=== PATIENT | male | born 1975 | race Caucasian/White ===

== ENCOUNTER 2017-04-23 15:07 | Emergency (ER) | payer OTHER, MEDICAID ==
[2017-04-23 15:15] VITALS: TEMP 98.4
[2017-04-23] MEDS ORDERED: NS 1,000 ML IV ONE ×2 (15:29)
[2017-04-23 15:36] LABS: % IMMATURE GRANULYOCYTES 0.3 % (0.0-1.1); ABSOLUTE IMMATURE GRANULOCYTES 0.04 10^3/uL (0.00-0.10); ADD DIFF? NO; ADD MORPH? NO; ADD SCAN? NO; ATYPICAL LYMPHOCYTE FLAG 10 (0-99); FRAGMENT RBC FLAG 0 (0-99); HEMATOCRIT 46.3 % (40.0-51.0); HEMOGLOBIN 16.5 g/dL (13.7-17.5); LEFT SHIFT FLG 0 (0-99); LIPEMIA HEMOLYSIS FLAG 90 (0-99); MEAN CELL HEMOGLOBIN CONCENTR. 35.6 g/dL (32.4-36.7); MEAN PLATELET VOLUME 9.9 fL (8.7-11.7); PLATELET CLUMPS FLAG 0 (0-99); PLATELET COUNT 280 10^3/uL (150-400); RED BLOOD CELL COUNT 5.32 10^6/uL (4.40-6.38); RED CELL DISTRIBUTION WIDTH 12.1 % (11.5-15.2)
[2017-04-23 15:42] LABS: ANION GAP 17 mEq/L (8-16); CALCIUM 9.7 mg/dL (8.5-10.4); CARBON DIOXIDE 19 mEq/l (22-31); CHLORIDE 107 mEq/L (97-110); CREATININE 0.9 mg/dL (0.7-1.3); GLOMERULAR FILTRATION RATE > 60; GLUCOSE 93 mg/dL (70-100); POTASSIUM 4.4 mEq/L (3.5-5.2); SODIUM 143 mEq/L (134-144)
--- NOTE | 2017-04-23 15:45 | EDPHY ---
H & P Stated Complaint: Blood in Stool, "Passed Out" Time Seen by Provider: 04/23/17 15:14 HPI/ROS: CHIEF COMPLAINT: Syncope, diarrhea HISTORY OF PRESENT ILLNESS: The patient presents to the emergency department after a syncopal episode last night. He is currently incarcerated at the skilled nursing. The patient reportedly struck his head but did not lose consciousness. He has had 2 days of profuse green watery diarrhea. The patient denies recent travel outside [place]. He denies recent antibiotic use. The patient's stool was reportedly heme-positive. The patient denies any chest pain or shortness of breath. He has remote history of concussion and cervical spine fracture. He denies acute neck pain. The patient denies any significant cardiac history. He takes no regular medications. The patient continues to have ongoing diarrhea today. REVIEW OF SYSTEMS: A comprehensive 10 point review of systems is otherwise negative aside from elements mentioned in the history of present illness. Source: Patient Exam Limitations: No limitations - Personal History Current Tetanus Diphtheria and Acellular Pertussis (TDAP): Yes - Medical/Surgical History Hx Asthma: No Hx Chronic Respiratory Disease: No Hx Diabetes: No Hx Cardiac Disease: No Hx Renal Disease: No Hx Cirrhosis: No Hx Alcoholism: No Hx HIV/AIDS: No Hx Splenectomy or Spleen Trauma: No Other PMH: Orthopedic Sgys, GERD, Enlarged Heart, Meth Use - Social History Smoking Status: Former smoker - Physical Exam Exam: General Appearance: Alert, no distress Eyes: Pupils equal and round no pallor or injection ENT, Mouth: Mucous membranes moist Respiratory: There are no retractions, lungs are clear to auscultation Cardiovascular: Regular rate and rhythm Gastrointestinal: Abdomen is soft and nontender, no masses, bowel sounds normal Neurological: A&O, normal motor function, normal sensory exam, normal cranial nerves Skin: Warm and dry, no rashes Musculoskeletal: Neck is supple nontender Extremities: symmetrical, full range of motion Constitutional: Initial Vital Signs Temperature (C) 36.9 C 04/23/17 15:12 Heart Rate 94 04/23/17 15:12 Respiratory Rate 16 04/23/17 15:12 Blood Pressure 146/101 H 04/23/17 15:12 O2 Sat (%) 94 04/23/17 15:12 O2 Delivery Mode Room Air Allergies/Adverse Reactions: No Known Allergies Allergy (Unverified 04/23/17 15:14) Home Medications: Medication Instructions Recorded NK [No Known Home Meds] 04/23/17 Medical Decision Making - Diagnostics EKG Interpretation: EKG: Complete interpretation has been separately recorded in the [employer] archive. Summary impression: Sinus rhythm, rate 88 ED Course/Re-evaluation: Patient had an IV established. The patient received 2 L of normal saline. The patient's laboratory studies are within normal limits. Specifically the patient has no evidence of critical anemia. He presents to the ED with green watery diarrhea. I see no indication to starting antibiotics. The patient will be advised to return to the emergency department for more significant GI bleeding, recurrent syncope other concerns. His EKG demonstrates no evidence of an arrhythmia. In terms of the patient's fall, there is no evidence of significant closed head injury or cervical spine injury clinically. Differential Diagnosis: Differential diagnosis considered includes critical anemia, arrhythmia, dehydration, vasovagal episode, metabolic abnormality - Data Points Laboratory Results: Laboratory Results 04/23/17 15:25 04/23/17 15:25 04/23/17 04/23/17 15:25 15:25 WBC 12.05 10^3/uL H 10^3/uL (3.80-9.50) RBC 5.32 10^6/uL 10^6/uL (4.40-6.38) Hgb 16.5 g/dL g/dL (13.7-17.5) Hct 46.3 % % (40.0-51.0) MCV 87.0 fL fL (81.5-99.8) MCH 31.0 pg pg (27.9-34.1) MCHC 35.6 g/dL g/dL (32.4-36.7) RDW 12.1 % % (11.5-15.2) Plt Count 280 10^3/uL 10^3/uL (150-400) MPV 9.9 fL fL (8.7-11.7) Neut % (Auto) 61.5 % % (39.3-74.2) Lymph % (Auto) 28.6 % % (15.0-45.0) [place] % (Auto) 7.9 % % (4.5-13.0) Eos % (Auto) 1.4 % % (0.6-7.6) Baso % (Auto) 0.3 % % (0.3-1.7) Nucleat RBC Rel Count 0.0 % % (0.0-0.2) Absolute Neuts (auto) 7.40 10^3/uL H 10^3/uL (1.70-6.50) Absolute Lymphs (auto) 3.45 10^3/uL H 10^3/uL (1.00-3.00) Absolute Monos (auto) 0.95 10^3/uL H 10^3/uL (0.30-0.80) Absolute Eos (auto) 0.17 10^3/uL 10^3/uL (0.03-0.40) Absolute Basos (auto) 0.04 10^3/uL 10^3/uL (0.02-0.10) Absolute Nucleated RBC 0.00 10^3/uL 10^3/uL (0-0.01) Immature Gran % 0.3 % % (0.0-1.1) Immature Gran # 0.04 10^3/uL 10^3/uL (0.00-0.10) Sodium 143 mEq/L mEq/L (134-144) Potassium 4.4 mEq/L mEq/L (3.5-5.2) Chloride 107 mEq/L mEq/L (97-110) Carbon Dioxide 19 mEq/l L mEq/l (22-31) Anion Gap 17 mEq/L H mEq/L (8-16) BUN 15 mg/dL mg/dL (7-23) Creatinine 0.9 mg/dL mg/dL (0.7-1.3) Estimated GFR > 60 Glucose 93 mg/dL mg/dL (70-100) Calcium 9.7 mg/dL mg/dL (8.5-10.4) Medications Given: Discontinued Medications Sodium Chloride (Ns) 1,000 mls @ 0 mls/hr IV EDNOW ONE; Wide Open PRN Reason: Protocol Stop: 04/23/17 15:30 Last Admin: 04/23/17 15:50 Dose: Not Given Sodium Chloride (Ns) 1,000 mls @ 0 mls/hr IV EDNOW ONE; Wide Open PRN Reason: Protocol Stop: 04/23/17 15:30 Last Admin: 04/23/17 15:51 Dose: 1,000 mls Departure - Departure Disposition: Home, Routine, Self-Care Clinical Impression: Syncope, Diarrhea Condition: Good Instructions: Acute Diarrhea (ED) Additional Instructions: 1. Imodium as needed for diarrhea. 2. Return to the ED for severe abdominal pain, fever, grossly bloody stool or other concerns. 3. Please follow up with your primary care provider as scheduled.
--- NOTE | 2017-04-23 15:48 | CPEKG ---
Heart Rate: 88 RR Interval: 682 P-R Interval: 160 QRSD Interval: 112 QT Interval: 388 QTC Interval: 470 P [place]: 36 QRS [place]: -34 T Wave [place]: 31 EKG Severity - ABNORMAL ECG - EKG Impression: SINUS RHYTHM Electronically Signed By: Selvin Asif 23-Apr-2017 15:52:40
[2017-04-23 16:40] VITALS: BP 141/99; PULSE 74; RESP 18; O2SAT 97
== END 2017-04-23 16:40 | disposition home or self-care (01) ==
LOC: EEVIPCON 15:07
DX: R55 Syncope and collapse (principal); R19.7 Diarrhea, unspecified; E86.9 Volume depletion, unspecified; Z87.891 Personal history of nicotine dependence

== ENCOUNTER 2018-02-09 12:36 | Emergency (ER) | payer MEDICAID, OTHER ==
--- NOTE | 2018-02-09 12:51 | CPEKG ---
Heart Rate: 76 RR Interval: 789 P-R Interval: 164 QRSD Interval: 112 QT Interval: 416 QTC Interval: 468 P [place]: 23 QRS [place]: -43 T Wave [place]: 13 EKG Severity - ABNORMAL ECG - EKG Impression: SINUS RHYTHM EKG Impression: NONSPECIFIC IVCD WITH LAD Electronically Signed By: Herbert Saravia 09-Feb-2018 15:05:34
[2018-02-09 13:15] LABS: PLATELET COUNT 243 10^3/uL (150-400)
--- NOTE | 2018-02-09 13:44 | EDPHY ---
H & P Stated Complaint: syncopal event in court/hadn't eaten Time Seen by Provider: 02/09/18 12:57 HPI/ROS: CHIEF COMPLAINT: Syncope HISTORY OF PRESENT ILLNESS: 43-year-old male presents after a syncopal episode. He was standing in court this morning, began to feel dizzy and clammy and then had a witnessed syncopal episode. He was helped to a chair by a mounted police officer. He currently feels back to normal. He did not eat breakfast this morning. He has not been ill and no recent injury. 1 prior syncopal episode a few years ago. REVIEW OF SYSTEMS: complete 10 point ROS negative except at noted in the HPI - Personal History Current Tetanus/Diphtheria Vaccine: Unsure - Medical/Surgical History Hx Asthma: No Hx Chronic Respiratory Disease: No Hx Diabetes: No Hx Cardiac Disease: No Hx Renal Disease: No Hx Cirrhosis: No Hx Alcoholism: No Hx HIV/AIDS: No Hx Splenectomy or Spleen Trauma: No Other PMH: Orthopedic Sgys, GERD, Meth Use - Social History Smoking Status: Former smoker - Physical Exam Exam: General Appearance: Alert, pleasant, cooperative Eyes: Pupils equal and round, no conjunctival pallor ENT, Mouth: Mucous membranes moist Neck: Normal inspection Respiratory: Lungs are clear to auscultation Cardiovascular: Regular rate and rhythm, no murmur Gastrointestinal: Abdomen is soft and nontender Neurological: Alert, oriented x3, cranial nerves II through XII intact, motor 5 /5, sensory intact to light touch Skin: Warm and dry Extremities: Normal inspection Psychiatric: Mood and affect normal Constitutional: Initial Vital Signs Temperature (C) 36.3 C 02/09/18 12:41 Heart Rate 70 02/09/18 12:41 Respiratory Rate 16 02/09/18 12:41 Blood Pressure 124/80 H 02/09/18 12:41 O2 Sat (%) 93 02/09/18 12:41 O2 Delivery Mode Room Air Allergies/Adverse Reactions: No Known Allergies Allergy (Verified 02/09/18 12:41) Home Medications: Medication Instructions Recorded [facility] 02/09/18 Medical Decision Making - Diagnostics EKG Interpretation: EKG interpreted by me reveals normal sinus rhythm, rate 76, IVCD, QRS interval 0.11, no ST or T segment changes. Interpretation: Borderline EKG ED Course/Re-evaluation: This patient presents after syncopal episode most likely related to a vasovagal episode. Stat EKG reveals no evidence of ischemia or dysrhythmia. He is currently asymptomatic and rn cardiac cath reveals normal sinus rhythm throughout. Safe and stable for discharge home. Differential Diagnosis: Differential diagnosis includes though is not limited to cardiac dysrhythmia, CVA, TIA, GI bleed, sepsis, hypoglycemia. - Data Points Laboratory Results: Laboratory Results 02/09/18 13:00 02/09/18 13:00 02/09/18 02/09/18 13:00 13:00 WBC 7.95 10^3/uL 10^3/uL (3.80-9.50) RBC 4.91 10^6/uL 10^6/uL (4.40-6.38) Hgb 15.2 g/dL g/dL (13.7-17.5) Hct 42.5 % % (40.0-51.0) MCV 86.6 fL fL (81.5-99.8) MCH 31.0 pg pg (27.9-34.1) MCHC 35.8 g/dL g/dL (32.4-36.7) RDW 11.9 % % (11.5-15.2) Plt Count 243 10^3/uL 10^3/uL (150-400) MPV 9.6 fL fL (8.7-11.7) Neut % (Auto) 64.3 % % (39.3-74.2) Lymph % (Auto) 27.2 % % (15.0-45.0) [place] % (Auto) 6.3 % % (4.5-13.0) Eos % (Auto) 1.6 % % (0.6-7.6) Baso % (Auto) 0.3 % % (0.3-1.7) Nucleat RBC Rel Count 0.0 % % (0.0-0.2) Absolute Neuts (auto) 5.12 10^3/uL 10^3/uL (1.70-6.50) Absolute Lymphs (auto) 2.16 10^3/uL 10^3/uL (1.00-3.00) Absolute Monos (auto) 0.50 10^3/uL 10^3/uL (0.30-0.80) Absolute Eos (auto) 0.13 10^3/uL 10^3/uL (0.03-0.40) Absolute Basos (auto) 0.02 10^3/uL 10^3/uL (0.02-0.10) Absolute Nucleated RBC 0.00 10^3/uL 10^3/uL (0-0.01) Immature Gran % 0.3 % % (0.0-1.1) Immature Gran # 0.02 10^3/uL 10^3/uL (0.00-0.10) Sodium 142 mEq/L mEq/L (135-145) Potassium 4.2 mEq/L mEq/L (3.5-5.2) Chloride 101 mEq/L mEq/L (97-110) Carbon Dioxide 26 mEq/l mEq/l (22-31) Anion Gap 15 mEq/L mEq/L (8-16) BUN 16 mg/dL mg/dL (7-23) Creatinine 0.9 mg/dL mg/dL (0.7-1.3) Estimated GFR > 60 Glucose 105 mg/dL H mg/dL (70-100) Calcium 9.2 mg/dL mg/dL (8.5-10.4) Departure - Departure Disposition: Home, Routine, Self-Care Clinical Impression: Syncope Qualifiers: Syncope type: vasovagal syncope Qualified Code(s): R55 - Syncope and collapse Condition: Good Instructions: Syncope (ED) Additional Instructions: Drink plenty of fluids. Return for recurrent symptoms or any concerns. Referrals: Bere Mccullough MD [Medical Doctor] - As per Instructions
[2018-02-09 13:59] VITALS: BP 115/75
== END 2018-02-09 14:02 | disposition home or self-care (01) ==
LOC: EDUNIT# → EEVIPCON 12:36
DX: R55 Syncope and collapse (principal); Z87.891 Personal history of nicotine dependence